=== PATIENT | female | born 1990 | race Hispanic/Latino ===

== ENCOUNTER 2018-10-27 15:43 | Emergency (ER) | payer SELFPAY ==
[2018-10-27] MEDS ORDERED: Proparacaine 0.5% Opth 15 ML BOT ONE (16:35)
[2018-10-27] MEDS ORDERED: Fluorescein Opthalmic Strip ONE (16:35)
[2018-10-27] MEDS ORDERED: Ketorolac Tromethamine 30 MG/ML VIAL ONE (18:00)
--- NOTE | 2018-10-27 19:43 | CT ---
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 Patient rep orts occasional flare-ups with pressure and drainage to site of prior infection. COMPARISON: None available. FINDINGS: The orbits are normal and symmetric in appearance bilaterally. Extraocular muscles have a symmetric a ppearance bilaterally. There is no postseptal fluid collection or inflammatory stranding seen. No per iorbital subcutaneous soft tissue swelling is seen. The paranasal sinuses and visualized mastoid air cells are clear. No facial subcutaneous soft tissue swelling or fluid collection is identified. IMPRESSION: No acute findings are seen. The orbits are normal and symmetric in appearance bilaterally. No fluid c ollection is seen to suggest an abscess. POS: [facility]
== END 2018-10-27 19:49 | disposition home or self-care (01) ==
LOC: ERS 15:43
DX: H10.9 Unspecified conjunctivitis (principal); F32.9 Major depressive disorder, single episode, unspecified; F43.10 Post-traumatic stress disorder, unspecified
CPT/HCPCS: 70481; 96374; J1885